=== PATIENT | female | born 2000 | race African-American/Black ===

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

== ENCOUNTER 2020-03-29 12:52 | Emergency (ER) | payer OTHER ==
[2020-03-29 13:00] VITALS: BP 120/72; PULSE 99; BMI 35.4
[2020-03-29 13:02] VITALS: TEMP 97.6
[2020-03-29 14:32] LABS: HEMATOCRIT 40.1 % (32.4-45.2); HEMOGLOBIN 13.1 GM/dL (10.7-15.3); MCH 26.5 pg (25.7-33.7); MCHC 32.7 g/dl (32.0-36.0); RBC 4.95 M/mm3 (3.60-5.2); WHITE BLOOD COUNT 8.9 K/mm3 (4.0-10.0)
[2020-03-29 14:33] LABS: BASO % 0.6 % (0-2.0); EOS % 0.4 % (0-4.5); LYMPH % 20.6 % (8-40); MEAN PLT VOLUME 9.2 fl (7.5-11.1); NEUT % 73.4 % (42.8-82.8); PLATELET COUNT 331 K/MM3 (134-434)
[2020-03-29 14:40] LABS: PH,URINE 5.5 (5.0-8.0); URINE APPEARANCE CLEAR; URINE BILIRUBIN NEGATIVE (NEGATIVE); URINE COLOR YELLOW; URINE GLUCOSE (UA) NEGATIVE (NEGATIVE); URINE KETONE NEGATIVE (NEGATIVE); URINE LEUK ESTERASE NEGATIVE (NEGATIVE); URINE NITRITE NEGATIVE (NEGATIVE); URINE PROTEIN NEGATIVE (NEGATIVE); URINE UROBILINOGEN 0.2 mg/dL (0.2-1.0)
[2020-03-29 14:42] LABS: HCG,QUALITATIVE URINE Negative
[2020-03-29 14:57] LABS: ALBUMIN 4.3 g/dl (3.4-5.0); CALCIUM 9.3 mg/dL (8.5-10.1)
[2020-03-29 15:02] LABS: BILIRUBIN,TOTAL 0.2 mg/dL (0.2-1)
[2020-03-29 15:25] LABS: BLOOD UREA NITROGEN 16.9 mg/dL (7-18); CREATININE 0.8 mg/dL (0.55-1.3)
[2020-03-29 15:48] LABS: HIV INTERPRETATION NEGATIVE (NEGATIVE)
== END 2020-03-29 15:09 | disposition home or self-care (01) ==
LOC: JERFT 12:52
DX: K13.0 Diseases of lips (principal)
CPT/HCPCS: 36415; 80053; 81003; 82607; 82746; 84703; 85025; 87252; 87389; 99283-25